=== PATIENT | male | born 1980 | race Caucasian/White ===

== ENCOUNTER 2019-05-19 09:57 | Emergency (ER) | payer MEDICAID ==
[2019-05-19 10:37] LABS: URINE BLOOD (Dip) POC Trace-intact (NEGATIVE); URINE GLUCOSE (Dip) POC Negative (NEGATIVE); URINE KETONES (Dip) POC Negative (NEGATIVE); URINE LEUKOCYTE EST (Dip) POC Negative (NEGATIVE); URINE NITRITE (Dip) POC Negative (NEGATIVE); URINE TOTAL PROTEIN POC Negative (NEGATIVE)
[2019-05-19 10:37] LABS: URINE PH (Dip) POC 5.5 (5.0-8.5)
== END 2019-05-19 11:16 | disposition home or self-care (01) ==
LOC: FTE 11:16
DX: N50.3 Cyst of epididymis (principal)
CPT/HCPCS: 76870; 81003; 99284-25